=== PATIENT | female | born 1970 | race Caucasian/White ===

== ENCOUNTER 2020-09-07 08:14 | Inpatient (IN) | payer BC ==
[2020-09-07 08:53] LABS: #Eosinphils 0.1 thou/uL (0.0-0.7); #Lymphocytes 1.2 thou/uL (1.20-3.40); #Monocytes 0.3 thou/uL (0.11-0.59); #Neutrophils 9.1 thou/uL (1.40-6.50); %Basophils 0.3 % (0.0-1.0); %Eosinophils 1.2 % (0.0-10.0); %Monocytes 2.5 % (0.0-10.0); Hemoglobin 8.7 g/dL (12.0-16.0); Mean Corpuscular Volume 82.3 fL (78.0-98.0); Mean Platelet Volume 7.1 fL (7.4-10.4); Platelet Count 245 thou/uL (130-400); RBC Distribution Width 14.9 % (11.5-14.5); Red Blood Cell (RBC) Count 3.09 mill/uL (4.20-5.40); White Blood Cell (WBC) Count 10.7 thou/uL (4.8-10.8)
[2020-09-07 09:16] LABS: ALT (SGPT) 33 U/L (8-55); AST (SGOT) 17 U/L (5-34); Albumin 3.9 g/dL (3.5-5.0); Alkaline Phosphatase 99 U/L (40-110); Anion Gap 20 mmol/L (10-20); BUN (Urea Nitrogen) 125 mg/dL (9.8-20.1); Bilirubin, Total 0.4 mg/dL (0.2-1.2); Calc. Creatinine Clearance 0 mL/min (70-130); Calcium 7.2 mg/dL (7.8-10.44); Carbon Dioxide 11 mmol/L (22-29); Chloride 113 mmol/L (98-107); Globulin 4.1 g/dL (2.4-3.5); Glucose 66 mg/dL (70-105); Potassium 5.1 mmol/L (3.5-5.1); Sodium 139 mmol/L (136-145)
[2020-09-07] MEDS ORDERED: Dextrose 50% Abboject 50 ML SYRINGE ONE ×2 (09:45→14:49)
[2020-09-07] MEDS ORDERED: Octreotide Acetate 100 MCG/ML VIAL SLOW IVP SCH (10:45)
[2020-09-07] MEDS ORDERED: hydrALAZINE 20 MG/ML VIAL SLOW IVP PRN (10:58)
[2020-09-07] MEDS ORDERED: Sodium Chloride 0.9% 1,000 ML IV SCH (11:00)
[2020-09-07 12:07] LABS: SARS-CoV-2 NAA Rapid Test Not Detected (NotDetected)
[2020-09-07] MEDS ORDERED: Dextrose 5 % And 0.9 % NaCl 1,000 ML IV SCH (14:30)
[2020-09-07] MEDS ORDERED: Dextrose 50% Abboject 50 ML SYRINGE SLOW IVP PRN (15:00)
[2020-09-07] MEDS ORDERED: Heparin 5,000 UNITS/ML VIAL SC SCH (15:00)
[2020-09-07] MEDS: Sodium Bicarbonate 150 MEQ in Dextrose 5% in Water 1,000 ML IV SCH (15:13)
[2020-09-07] MEDS ORDERED: Lidocaine 1% (PF) 30 ML VIAL ONE (15:54)
[2020-09-07] MEDS ORDERED: Lidocaine 1% w/Epinephrine 1:100K 20 ML VIAL IJ SCH (16:15)
[2020-09-08] MEDS: Sodium Bicarbonate 150 MEQ in Dextrose 5% in Water 1,000 ML IV SCH ×2 (02:12→14:13)
[2020-09-08 03:34] LABS: #Eosinphils 0.3 thou/uL (0.0-0.7); #Lymphocytes 1.4 thou/uL (1.20-3.40); #Monocytes 0.5 thou/uL (0.11-0.59); #Neutrophils 6.3 thou/uL (1.40-6.50); %Basophils 0.3 % (0.0-1.0); %Eosinophils 3.5 % (0.0-10.0); %Lymphocytes 16.6 % (21.0-51.0); %Monocytes 5.5 % (0.0-10.0); %Neutrophils 74.2 % (42.0-75.0); Hemoglobin 7.8 g/dL (12.0-16.0); Mean Corpuscular HGB CONC 33.4 g/dL (32.0-36.0); Mean Corpuscular Hemoglobin 27.4 pg (27.0-31.0); Mean Corpuscular Volume 81.9 fL (78.0-98.0); Platelet Count 244 thou/uL (130-400); RBC Distribution Width 14.9 % (11.5-14.5); Red Blood Cell (RBC) Count 2.85 mill/uL (4.20-5.40); White Blood Cell (WBC) Count 8.6 thou/uL (4.8-10.8)
[2020-09-08 03:57] LABS: Albumin 3.5 g/dL (3.5-5.0); Anion Gap 20 mmol/L (10-20); BUN (Urea Nitrogen) 122 mg/dL (9.8-20.1); BUN/Creatinine Ratio 12.63; Calc. Creatinine Clearance 11 mL/min (70-130); Calcium 6.6 mg/dL (7.8-10.44); Carbon Dioxide 14 mmol/L (22-29); Chloride 109 mmol/L (98-107); Glucose 119 mg/dL (70-105); Iron 74 ug/dL (50-170); Iron Binding Capacity, Total 243 mcg/dL (265-497); Phosphorus 8.9 mg/dL (2.3-4.7); Sodium 138 mmol/L (136-145)
[2020-09-08] MEDS: Enoxaparin Sodium 30 MG/0.3 ML SYRINGE SC SCH (08:55)
[2020-09-08] MEDS: Calcium Acetate 667 MG CAP PO SCH (17:21)
[2020-09-08] MEDS ORDERED: CEFAZOLIN 2 GM in Premix Bag 1 BAG IVPB SCH (18:30)
[2020-09-08] MEDS: EPOETIN ALFA-EPBX (ESRD) 10,000 UNIT/ML VIAL SC SCH (18:47)
[2020-09-08] MEDS: hydrALAZINE 25 MG TAB PO SCH (20:44)
[2020-09-09 04:01] LABS: #Eosinphils 0.2 thou/uL (0.0-0.7); #Lymphocytes 1.7 thou/uL (1.20-3.40); #Monocytes 0.4 thou/uL (0.11-0.59); #Neutrophils 5.9 thou/uL (1.40-6.50); %Basophils 0.2 % (0.0-1.0); %Eosinophils 2.5 % (0.0-10.0); %Lymphocytes 20.3 % (21.0-51.0); %Monocytes 5.3 % (0.0-10.0); %Neutrophils 71.6 % (42.0-75.0); Hemoglobin 7.2 g/dL (12.0-16.0); Mean Corpuscular HGB CONC 33.4 g/dL (32.0-36.0); Mean Corpuscular Volume 80.8 fL (78.0-98.0); Platelet Count 255 thou/uL (130-400); RBC Distribution Width 14.8 % (11.5-14.5); Red Blood Cell (RBC) Count 2.65 mill/uL (4.20-5.40); White Blood Cell (WBC) Count 8.2 thou/uL (4.8-10.8)
[2020-09-09 04:20] LABS: Albumin 3.3 g/dL (3.5-5.0); Anion Gap 18 mmol/L (10-20); BUN (Urea Nitrogen) 125 mg/dL (9.8-20.1); BUN/Creatinine Ratio 13.51; Calc. Creatinine Clearance 12 mL/min (70-130); Calcium 6.5 mg/dL (7.8-10.44); Carbon Dioxide 17 mmol/L (22-29); Chloride 107 mmol/L (98-107); Glucose 115 mg/dL (70-105); Phosphorus 8.6 mg/dL (2.3-4.7); Potassium 4.8 mmol/L (3.5-5.1); Sodium 137 mmol/L (136-145)
[2020-09-09] MEDS: Calcitriol 0.25 MCG CAP PO SCH (09:00)
[2020-09-09] MEDS: Loratadine 10 MG TAB PO SCH (09:00)
[2020-09-09] MEDS: Calcium Acetate 667 MG CAP PO SCH ×3 (09:00→15:08)
[2020-09-09] MEDS: hydrALAZINE 25 MG TAB PO SCH ×2 (09:00→21:07)
[2020-09-09] MEDS: Enoxaparin Sodium 30 MG/0.3 ML SYRINGE SC SCH (09:01)
[2020-09-09] MEDS ORDERED: Heparin 10,000 UNITS/ 10 ML VIAL ONE ×2 (09:08→11:55)
[2020-09-09] MEDS ORDERED: PROPOFOL 20 ML ONE (11:05)
[2020-09-09] MEDS ORDERED: Fentanyl 100 MCG/2 ML VIAL ONE (11:05)
[2020-09-09] MEDS ORDERED: Lidocaine 1% w/Epinephrine 1:100K 20 ML VIAL ONE (11:11)
[2020-09-09] MEDS ORDERED: Bupivacaine PF 0.5% 30 ML VIAL ONE (11:11)
[2020-09-09] MEDS ORDERED: Sodium Chloride 0.9% 10 ML ONE (11:11)
[2020-09-09] MEDS ORDERED: Ondansetron PF 4 MG/2 ML Vial ONE (11:43)
[2020-09-09] MEDS ORDERED: Lidocaine 1% PF 5 ML VIAL ONE (11:43)
[2020-09-09] MEDS ORDERED: PROPOFOL 200 MG/20 ML VIAL ONE (11:43)
[2020-09-09] MEDS ORDERED: Sodium Chloride 0.9% 20 ML ONE (12:00)
[2020-09-09] MEDS ORDERED: Promethazine HCl 25 MG/ML VIAL SLOW IVP PRN (12:16)
[2020-09-09] MEDS ORDERED: Promethazine HCl 25 MG/ML VIAL IM PRN (12:16)
[2020-09-09] MEDS ORDERED: Ondansetron HCl/PF 4 MG/2 ML Vial IVP PRN (12:16)
[2020-09-09] MEDS ORDERED: traMADol HCl 50 MG TAB PO PRN (12:19)
[2020-09-09 23:10] LABS: HBSAg Index 0.14 S/CO (0-0.99); Hep B Surf Ag Non-Reactive S/CO (NonReactive)
[2020-09-10 04:06] LABS: Hemoglobin 7.5 g/dL (12.0-16.0); Platelet Count 239 thou/uL (130-400)
[2020-09-10 04:24] LABS: Albumin 3.5 g/dL (3.5-5.0); Anion Gap 17 mmol/L (10-20); BUN (Urea Nitrogen) 84 mg/dL (9.8-20.1); BUN/Creatinine Ratio 11.59; Calc. Creatinine Clearance 15 mL/min (70-130); Calcium 7.2 mg/dL (7.8-10.44); Carbon Dioxide 23 mmol/L (22-29); Chloride 106 mmol/L (98-107); Glucose 116 mg/dL (70-105); Phosphorus 6.9 mg/dL (2.3-4.7); Potassium 4.5 mmol/L (3.5-5.1); Sodium 141 mmol/L (136-145)
[2020-09-10] MEDS ORDERED: Heparin 10,000 UNITS/ 10 ML VIAL ONE (09:09)
[2020-09-10] MEDS: Ondansetron PF 4 MG/2 ML Vial IVP PRN (10:25)
[2020-09-10] MEDS: hydrALAZINE 25 MG TAB PO SCH ×3 (11:05→21:11)
[2020-09-10] MEDS: Loratadine 10 MG TAB PO SCH (11:05)
[2020-09-10] MEDS: Enoxaparin Sodium 30 MG/0.3 ML SYRINGE SC SCH (11:05)
[2020-09-10] MEDS: Calcitriol 0.25 MCG CAP PO SCH (11:05)
[2020-09-10] MEDS: Calcium Acetate 667 MG CAP PO SCH ×3 (11:05→17:58)
[2020-09-11 04:04] LABS: Reticulocyte Count 4.5 % (0.5-1.5)
[2020-09-11 04:23] LABS: Albumin 3.5 g/dL (3.5-5.0); Anion Gap 15 mmol/L (10-20); BUN (Urea Nitrogen) 60 mg/dL (9.8-20.1); BUN/Creatinine Ratio 10.85; Calc. Creatinine Clearance 19 mL/min (70-130); Calcium 8.1 mg/dL (7.8-10.44); Carbon Dioxide 27 mmol/L (22-29); Chloride 97 mmol/L (98-107); Glucose 125 mg/dL (70-105); Potassium 4.1 mmol/L (3.5-5.1); Sodium 135 mmol/L (136-145)
[2020-09-11] MEDS ORDERED: Heparin 10,000 UNITS/ 10 ML VIAL ONE (08:24)
[2020-09-11] MEDS: Calcium Acetate 667 MG CAP PO SCH ×3 (09:23→17:31)
[2020-09-11] MEDS: hydrALAZINE 25 MG TAB PO SCH ×3 (09:24→21:01)
[2020-09-11] MEDS: Enoxaparin Sodium 30 MG/0.3 ML SYRINGE SC SCH (09:24)
[2020-09-11] MEDS: Loratadine 10 MG TAB PO SCH (09:24)
[2020-09-11] MEDS: Calcitriol 0.25 MCG CAP PO SCH (09:24)
[2020-09-11] MEDS: Ondansetron PF 4 MG/2 ML Vial IVP PRN (11:17)
[2020-09-11] MEDS ORDERED: CEFAZOLIN 2 GM in Premix Bag 1 BAG IVPB SCH (14:45)
[2020-09-12] MEDS: Ondansetron PF 4 MG/2 ML Vial IVP PRN (05:29)
[2020-09-12 07:11] LABS: Albumin 3.7 g/dL (3.5-5.0); Anion Gap 18 mmol/L (10-20); BUN (Urea Nitrogen) 48 mg/dL (9.8-20.1); BUN/Creatinine Ratio 10.19; Calc. Creatinine Clearance 22 mL/min (70-130); Calcium 8.4 mg/dL (7.8-10.44); Carbon Dioxide 28 mmol/L (22-29); Chloride 91 mmol/L (98-107); Glucose 164 mg/dL (70-105); Phosphorus 6.1 mg/dL (2.3-4.7); Potassium 4.1 mmol/L (3.5-5.1); Sodium 133 mmol/L (136-145)
[2020-09-12] MEDS ORDERED: Heparin 10,000 UNITS/ 10 ML VIAL ONE (08:53)
[2020-09-12] MEDS: Enoxaparin Sodium 30 MG/0.3 ML SYRINGE SC SCH (08:57)
[2020-09-12 09:40] LABS: HBSAB Concentration Less than 8.00 mIU/mL; HBSAg Index 0.59 S/CO (0-0.99); Hep B Core Total Ab Non-Reactive (NonReactive); Hep B Core Total Index 0.17 S/CO (0-0.79); Hep B Surf AB Non-Reactive (NonReactive); Hep B Surf Ag Non-Reactive S/CO (NonReactive); Hep C IgG Ab Non-Reactive (NonReactive); Hep C Index 0.08 S/CO (0-0.79)
[2020-09-12] MEDS: hydrALAZINE 25 MG TAB PO SCH ×3 (10:00→21:10)
[2020-09-12] MEDS: Loratadine 10 MG TAB PO SCH (10:00)
[2020-09-12] MEDS: Calcitriol 0.25 MCG CAP PO SCH (10:00)
[2020-09-12] MEDS: Calcium Acetate 667 MG CAP PO SCH ×3 (10:00→17:09)
[2020-09-12 12:00] LABS: Hemoglobin 8.3 g/dL (12.0-16.0); Mean Corpuscular HGB CONC 32.7 g/dL (32.0-36.0); Mean Corpuscular Hemoglobin 27.3 pg (27.0-31.0); Mean Corpuscular Volume 83.6 fL (78.0-98.0); Mean Platelet Volume 6.6 fL (7.4-10.4); Platelet Count 293 thou/uL (130-400); RBC Distribution Width 14.5 % (11.5-14.5); Red Blood Cell (RBC) Count 3.04 mill/uL (4.20-5.40); White Blood Cell (WBC) Count 11.1 thou/uL (4.8-10.8)
[2020-09-12 13:21] LABS: Anion Gap 16 mmol/L (10-20); BUN (Urea Nitrogen) 10 mg/dL (9.8-20.1); Calc. Creatinine Clearance 75 mL/min (70-130); Calcium 8.6 mg/dL (7.8-10.44); Carbon Dioxide 28 mmol/L (22-29); Chloride 97 mmol/L (98-107); Glucose 108 mg/dL (70-105); Potassium 3.7 mmol/L (3.5-5.1); Sodium 137 mmol/L (136-145)
[2020-09-12] MEDS ORDERED: Propofol 500 MG/50 ML VIAL ONE (14:26)
[2020-09-12] MEDS ORDERED: Fentanyl 100 MCG/2 ML VIAL ONE (14:26)
[2020-09-12] MEDS ORDERED: Midazolam HCl 2 mg/2 ml Vial ONE (14:26)
[2020-09-12] MEDS ORDERED: Protamine Sulfate 50 MG/5 ML VIAL ONE (14:33)
[2020-09-12] MEDS ORDERED: Heparin 5,000 UNITS/ML VIAL ONE (14:33)
[2020-09-12] MEDS ORDERED: Bupivacaine PF 0.5% 30 ML VIAL ONE (14:33)
[2020-09-12] MEDS ORDERED: Ioversol 68 % 50 ML VIAL ONE (14:33)
[2020-09-12] MEDS ORDERED: Lidocaine 1% w/Epinephrine 1:100K 20 ML VIAL ONE (14:33)
[2020-09-12] MEDS ORDERED: Lidocaine 1% PF 5 ML VIAL ONE (14:57)
[2020-09-12] MEDS ORDERED: Bupivacaine HCl 0.5%/Epinephrine 1:200,000/PF 30 ml Vial ONE (14:57)
[2020-09-12] MEDS ORDERED: PROPOFOL 200 MG/20 ML VIAL ONE (14:57)
[2020-09-12] MEDS ORDERED: CEFAZOLIN 2 GM in Premix Bag 1 BAG IVPB SCH (16:15)
[2020-09-13] MEDS: Acetaminophen 500 MG TAB PO PRN (05:41)
[2020-09-13] MEDS: Calcium Acetate 667 MG CAP PO SCH ×3 (07:50→17:37)
[2020-09-13] MEDS: Calcitriol 0.25 MCG CAP PO SCH (07:50)
[2020-09-13] MEDS: Enoxaparin Sodium 30 MG/0.3 ML SYRINGE SC SCH ×2 (07:50→10:48)
[2020-09-13] MEDS: hydrALAZINE 25 MG TAB PO SCH ×3 (07:51→20:38)
[2020-09-13] MEDS: Loratadine 10 MG TAB PO SCH (07:51)
[2020-09-13] MEDS ORDERED: Tuberculin PPD 0.1 ML VIAL I-DERMAL SCH (12:00)
[2020-09-14 06:10] LABS: Anion Gap 17 mmol/L (10-20); BUN (Urea Nitrogen) 45 mg/dL (9.8-20.1); Calc. Creatinine Clearance 18 mL/min (70-130); Calcium 8.8 mg/dL (7.8-10.44); Carbon Dioxide 26 mmol/L (22-29); Chloride 94 mmol/L (98-107); Glucose 169 mg/dL (70-105); Potassium 4.1 mmol/L (3.5-5.1); Sodium 133 mmol/L (136-145)
[2020-09-14] MEDS: Calcium Acetate 667 MG CAP PO SCH ×3 (07:12→18:11)
[2020-09-14] MEDS: Loratadine 10 MG TAB PO SCH (07:12)
[2020-09-14] MEDS: Enoxaparin Sodium 30 MG/0.3 ML SYRINGE SC SCH (07:12)
[2020-09-14] MEDS: Calcitriol 0.25 MCG CAP PO SCH (07:12)
[2020-09-14] MEDS: hydrALAZINE 25 MG TAB PO SCH ×3 (08:09→22:28)
[2020-09-14] MEDS ORDERED: Amlodipine 5 MG TAB PO SCH (10:00)
[2020-09-14] MEDS ORDERED: Bupivacaine PF 0.5% 30 ML VIAL ONE ×2 (11:03→14:52)
[2020-09-14] MEDS ORDERED: Heparin 5,000 UNITS/ML VIAL ONE (11:03)
[2020-09-14] MEDS ORDERED: Protamine Sulfate 50 MG/5 ML VIAL ONE (11:03)
[2020-09-14] MEDS ORDERED: XYLOCAINE 2%-EPI 1:100,000 20 ML VIAL ONE (11:03)
[2020-09-14] MEDS ORDERED: Ioversol 68 % 50 ML VIAL ONE (11:03)
[2020-09-14] MEDS ORDERED: Bupivacaine 0.25% HCL 30 ML VIAL ONE ×2 (11:58→14:52)
[2020-09-14] MEDS ORDERED: Lidocaine 1% w/Epinephrine 1:100K 20 ML VIAL ONE ×2 (11:58→14:52)
[2020-09-14] MEDS ORDERED: Fentanyl 100 MCG/2 ML VIAL ONE ×3 (12:28→15:04)
[2020-09-14] MEDS ORDERED: Propofol 500 MG/50 ML VIAL ONE (13:44)
[2020-09-14] MEDS ORDERED: Ondansetron PF 4 MG/2 ML Vial ONE (14:56)
[2020-09-14] MEDS ORDERED: Bupivacaine HCl 0.5%/Epinephrine 1:200,000/PF 30 ml Vial ONE (14:56)
[2020-09-14] MEDS ORDERED: Promethazine HCl 25 MG/ML VIAL ONE (16:51)
[2020-09-14 17:19] LABS: Hemoglobin 7.8 g/dL (12.0-16.0); Mean Corpuscular HGB CONC 33.3 g/dL (32.0-36.0); Mean Corpuscular Hemoglobin 27.9 pg (27.0-31.0); Mean Corpuscular Volume 83.8 fL (78.0-98.0); Mean Platelet Volume 7.1 fL (7.4-10.4); Platelet Count 471 thou/uL (130-400); RBC Distribution Width 14.8 % (11.5-14.5); Red Blood Cell (RBC) Count 2.81 mill/uL (4.20-5.40)
[2020-09-14] MEDS ORDERED: PHENYLEPHRINE-NS 100 MCG/ML 10 ML SYRINGE ONE (17:28)
[2020-09-14 17:37] LABS: Anisocytosis SLIGHT = 6-15 cells (100X) (0-5/hpf); Band 9 % (5-11); Eosinophils 5 % (0-10); Lymphocytes 24 % (21-51); MDiff Complete? YES; Monocytes 3 % (0-10); Neutrophil 57 % (42-75); Platelet Morphology Comment Appears Increased; Reactive Lymphocytes 2 % (0-10); White Blood Cell (WBC) Count 24.1 thou/uL (4.8-10.8)
[2020-09-14] MEDS ORDERED: Norepinephrine 8 MG/0.9% NS 250 ML IVPB SCH (18:48)
[2020-09-14 18:49] LABS: Anion Gap 20 mmol/L (10-20); BUN (Urea Nitrogen) 46 mg/dL (9.8-20.1); Calc. Creatinine Clearance 16 mL/min (70-130); Calcium 8.1 mg/dL (7.8-10.44); Carbon Dioxide 20 mmol/L (22-29); Chloride 95 mmol/L (98-107); Glucose 266 mg/dL (70-105); Potassium 4.2 mmol/L (3.5-5.1); Sodium 131 mmol/L (136-145)
[2020-09-15 00:21] LABS: Platelet Count 294 thou/uL (130-400)
[2020-09-15 04:07] LABS: #Basophils 0.1 thou/uL (0.0-0.2); #Eosinphils 0.1 thou/uL (0.0-0.7); #Lymphocytes 1.6 thou/uL (1.20-3.40); #Monocytes 0.7 thou/uL (0.11-0.59); #Neutrophils 16.4 thou/uL (1.40-6.50); %Basophils 0.5 % (0.0-1.0); %Eosinophils 0.5 % (0.0-10.0); %Lymphocytes 8.4 % (21.0-51.0); %Monocytes 3.8 % (0.0-10.0); %Neutrophils 86.8 % (42.0-75.0); Hemoglobin 8.8 g/dL (12.0-16.0); Mean Corpuscular HGB CONC 33.3 g/dL (32.0-36.0); Mean Corpuscular Hemoglobin 27.9 pg (27.0-31.0); Mean Corpuscular Volume 83.8 fL (78.0-98.0); Mean Platelet Volume 7.1 fL (7.4-10.4); Platelet Count 280 thou/uL (130-400); RBC Distribution Width 14.6 % (11.5-14.5); Red Blood Cell (RBC) Count 3.14 mill/uL (4.20-5.40); White Blood Cell (WBC) Count 18.9 thou/uL (4.8-10.8)
[2020-09-15 04:31] LABS: Anion Gap 20 mmol/L (10-20); BUN (Urea Nitrogen) 52 mg/dL (9.8-20.1); Calc. Creatinine Clearance 15 mL/min (70-130); Calcium 8.4 mg/dL (7.8-10.44); Carbon Dioxide 21 mmol/L (22-29); Chloride 95 mmol/L (98-107); Glucose 166 mg/dL (70-105); Potassium 4.9 mmol/L (3.5-5.1); Sodium 131 mmol/L (136-145)
[2020-09-15] MEDS: Acetaminophen 500 MG TAB PO PRN ×2 (06:16→20:18)
[2020-09-15 06:50] VITALS: BMI 41.1
[2020-09-15 08:09] LABS: Hemoglobin 8.6 g/dL (12.0-16.0); Platelet Count 274 thou/uL (130-400)
[2020-09-15] MEDS: Loratadine 10 MG TAB PO SCH (08:21)
[2020-09-15] MEDS: Calcium Acetate 667 MG CAP PO SCH ×3 (08:21→17:15)
[2020-09-15] MEDS ORDERED: Heparin 10,000 UNITS/ 10 ML VIAL ONE (08:43)
[2020-09-15] MEDS ORDERED: Amlodipine 5 MG TAB PO SCH (09:00)
[2020-09-15] MEDS: Calcitriol 0.25 MCG CAP PO SCH (09:08)
[2020-09-15] MEDS: hydrALAZINE 25 MG TAB PO SCH ×3 (09:56→20:16)
[2020-09-15] MEDS ORDERED: READ PPD TEST SITE PO SCH (14:00)
[2020-09-15] MEDS: EPOETIN ALFA-EPBX (ESRD) 10,000 UNIT/ML VIAL SC SCH (20:19)
[2020-09-16 06:14] LABS: #Basophils 0.1 thou/uL (0.0-0.2); #Eosinphils 0.2 thou/uL (0.0-0.7); #Lymphocytes 1.5 thou/uL (1.20-3.40); #Monocytes 0.8 thou/uL (0.11-0.59); #Neutrophils 11.5 thou/uL (1.40-6.50); %Basophils 0.6 % (0.0-1.0); %Eosinophils 1.5 % (0.0-10.0); %Lymphocytes 10.9 % (21.0-51.0); %Monocytes 5.5 % (0.0-10.0); %Neutrophils 81.5 % (42.0-75.0); Hemoglobin 9.3 g/dL (12.0-16.0); Mean Corpuscular Hemoglobin 28.3 pg (27.0-31.0); Mean Corpuscular Volume 85.5 fL (78.0-98.0); Mean Platelet Volume 7.5 fL (7.4-10.4); Platelet Count 254 thou/uL (130-400); RBC Distribution Width 14.7 % (11.5-14.5); Red Blood Cell (RBC) Count 3.29 mill/uL (4.20-5.40); White Blood Cell (WBC) Count 14.1 thou/uL (4.8-10.8)
[2020-09-16 06:38] LABS: Anion Gap 16 mmol/L (10-20); BUN (Urea Nitrogen) 27 mg/dL (9.8-20.1); Calc. Creatinine Clearance 21 mL/min (70-130); Carbon Dioxide 27 mmol/L (22-29); Chloride 98 mmol/L (98-107); Potassium 4.5 mmol/L (3.5-5.1); Sodium 136 mmol/L (136-145)
[2020-09-16 06:39] LABS: Calcium 8.9 mg/dL (7.8-10.44); Glucose 184 mg/dL (70-105)
[2020-09-16] MEDS ORDERED: Carvedilol 3.125 MG TAB PO SCH (08:00)
[2020-09-16 08:13] VITALS: BP 129/85; TEMP 99.4
[2020-09-16] MEDS: Calcitriol 0.25 MCG CAP PO SCH (08:35)
[2020-09-16] MEDS: Loratadine 10 MG TAB PO SCH (08:35)
[2020-09-16] MEDS: Calcium Acetate 667 MG CAP PO SCH (08:35)
[2020-09-16] MEDS ORDERED: Amlodipine 10 MG TAB PO SCH (09:00)
[2020-09-17] MEDS ORDERED: Torsemide 20 MG TAB PO SCH (09:00)
== END 2020-09-16 11:51 | disposition home or self-care (01) | DRG 674 ==
LOC: ERS 08:14 → IMCU/EMU 10:20 → T4-B 09-11 16:22 → CCU 09-14 18:52 → T4-B 09-15 11:28
PROVIDERS: ADMIT Internal Medicine; ATTEND Internal Medicine
PROC: 0JH63XZ Insertion of Tunneled Vascular Access Device into Chest Subcutaneous Tissue and Fascia, Percutaneous Approach (ICD-10-PCS; principal; 2020-09-09)
PROC: 5A1D70Z Performance of Urinary Filtration, Intermittent, Less than 6 Hours Per Day (ICD-10-PCS; 2020-09-09)
PROC: 0HB5XZX Excision of Chest Skin, External Approach, Diagnostic (ICD-10-PCS; 2020-09-10)
PROC: 05JY0ZZ Inspection of Upper Vein, Open Approach (ICD-10-PCS; 2020-09-12)
PROC: 03JY0ZZ Inspection of Upper Artery, Open Approach (ICD-10-PCS; 2020-09-12)
PROC: 02HV33Z Insertion of Infusion Device into Superior Vena Cava, Percutaneous Approach (ICD-10-PCS; 2020-09-12)
PROC: B548ZZA Ultrasonography of Superior Vena Cava, Guidance (ICD-10-PCS; 2020-09-12)
PROC: 02HV33Z Insertion of Infusion Device into Superior Vena Cava, Percutaneous Approach (ICD-10-PCS; 2020-09-12)
PROC: B518ZZA Fluoroscopy of Superior Vena Cava, Guidance (ICD-10-PCS; 2020-09-12)
PROC: 03170JD Bypass Right Brachial Artery to Upper Arm Vein with Synthetic Substitute, Open Approach (ICD-10-PCS; 2020-09-14)
PROC: 30233N1 Transfusion of Nonautologous Red Blood Cells into Peripheral Vein, Percutaneous Approach (ICD-10-PCS; 2020-09-15)
DX: N17.9 Acute kidney failure, unspecified (principal); E87.2 Acidosis; I12.0 Hypertensive chronic kidney disease with stage 5 chronic kidney disease or end stage renal disease; E87.1 Hypo-osmolality and hyponatremia; E11.649 Type 2 diabetes mellitus with hypoglycemia without coma; E78.00 Pure hypercholesterolemia, unspecified; E11.22 Type 2 diabetes mellitus with diabetic chronic kidney disease; D63.1 Anemia in chronic kidney disease; E66.01 Morbid (severe) obesity due to excess calories; K21.9 Gastro-esophageal reflux disease without esophagitis; E88.81 Metabolic syndrome and other insulin resistance; N18.6 End stage renal disease; C50.412 Malignant neoplasm of upper-outer quadrant of left female breast; E83.39 Other disorders of phosphorus metabolism; N25.81 Secondary hyperparathyroidism of renal origin; E83.51 Hypocalcemia; I95.9 Hypotension, unspecified; Z20.822 Contact with and (suspected) exposure to COVID-19; Z90.710 Acquired absence of both cervix and uterus; Z88.8 Allergy status to other drugs, medicaments and biological substances; Z79.84 Long term (current) use of oral hypoglycemic drugs; Z79.899 Other long term (current) drug therapy; Z90.49 Acquired absence of other specified parts of digestive tract; Z87.442 Personal history of urinary calculi; Z98.890 Other specified postprocedural states; Z80.1 Family history of malignant neoplasm of trachea, bronchus and lung; Z87.891 Personal history of nicotine dependence; Z99.2 Dependence on renal dialysis; Z17.0 Estrogen receptor positive status [ER+]; Z68.38 Body mass index [BMI] 38.0-38.9, adult
CPT/HCPCS: 0240U; 36415; 36416; 36430; 71045; 76770; 76999; 80048; 80053; 80069; 82607; 82728; 82746; 83540; 83550; 83735; 83970; 85014; 85018; 85025; 85027; 85046; 85049; 86300; 86580; 86704; 86706; 86803; 86850; 86900; 86901; 87340; 88305; 88341; 88342; 90935; 93005; 93970; 96374; C1751; C1752; G0257; J0690; J1642; J1644; J1650; J2001; J2250; J2354; J2405; J2550; J2704; J2720; J3010; J7070; L8670; P9016; Q5105; Q9967; S0020

== ENCOUNTER 2020-09-28 12:46 | Outpatient (CLI) | payer BC ==
[~2020-09-28 12:46] MED LIST: Magnevist 469MG/ML 20 ML VIAL ONE
== END 2020-09-28 12:47 | disposition home or self-care (01) ==
LOC: ULT 12:46
PROVIDERS: ATTEND Internal Medicine Hematology & Oncology
DX: Z51.11 Encounter for antineoplastic chemotherapy (principal); C50.112 Malignant neoplasm of central portion of left female breast; N18.5 Chronic kidney disease, stage 5; Z79.899 Other long term (current) drug therapy; Z99.2 Dependence on renal dialysis; I08.1 Rheumatic disorders of both mitral and tricuspid valves
CPT/HCPCS: 70553; 93306

== ENCOUNTER 2020-10-01 09:19 | Outpatient (CLI) | payer BC ==
[~2020-10-01 09:19] MED LIST changes: +Iopamidol 370 76% 100 ML VIAL ONE; -Magnevist 469MG/ML 20 ML VIAL ONE
== END 2020-10-01 09:20 | disposition home or self-care (01) ==
LOC: CT 09:19
PROVIDERS: ATTEND Internal Medicine Hematology & Oncology
DX: C50.112 Malignant neoplasm of central portion of left female breast (principal); N18.5 Chronic kidney disease, stage 5; C79.51 Secondary malignant neoplasm of bone
CPT/HCPCS: 71260; 74177; 78306; A9503; Q9967

== ENCOUNTER 2021-01-11 08:12 | Outpatient (CLI) | payer BC ==
[2021-01-11] MEDS ORDERED: Iopamidol 370 76% 100 ML VIAL ONE (10:09)
== END 2021-01-11 08:13 | disposition home or self-care (01) ==
LOC: CT 08:12
PROVIDERS: ATTEND Internal Medicine Hematology & Oncology
DX: C50.112 Malignant neoplasm of central portion of left female breast (principal); C79.51 Secondary malignant neoplasm of bone; M79.89 Other specified soft tissue disorders; E27.8 Other specified disorders of adrenal gland; N28.89 Other specified disorders of kidney and ureter; E04.2 Nontoxic multinodular goiter
CPT/HCPCS: 71260; 74177; 78306; A9561; Q9967

== ENCOUNTER 2021-01-25 10:32 | Outpatient (CLI) | payer BC ==
[2021-01-26 01:38] LABS: SARS-CoV-2 PCR by NAA Not Detected (NotDetected)
== END 2021-01-25 10:33 | disposition home or self-care (01) ==
LOC: LABBT 10:32
PROVIDERS: ATTEND Internal Medicine Hematology & Oncology
DX: Z01.812 Encounter for preprocedural laboratory examination (principal); Z20.822 Contact with and (suspected) exposure to COVID-19
CPT/HCPCS: U0003; U0005

== ENCOUNTER 2021-01-30 09:06 | Day surgery (SDC) | payer BC ==
[2021-01-28 15:22] VITALS: BMI 35.9
[2021-01-30 09:18] LABS: #Basophils 0.1 thou/uL (0.0-0.2); #Eosinphils 0.2 thou/uL (0.0-0.7); #Lymphocytes 1.6 thou/uL (1.20-3.40); #Monocytes 0.2 thou/uL (0.11-0.59); #Neutrophils 2.9 thou/uL (1.40-6.50); %Basophils 2.1 % (0.0-1.0); %Eosinophils 3.6 % (0.0-10.0); %Lymphocytes 32.6 % (21.0-51.0); %Monocytes 4.4 % (0.0-10.0); %Neutrophils 57.3 % (42.0-75.0); Hemoglobin 10.4 g/dL (12.0-16.0); Mean Corpuscular HGB CONC 34.6 g/dL (32.0-36.0); Mean Corpuscular Volume 92.5 fL (78.0-98.0); Mean Platelet Volume 6.9 fL (7.4-10.4); Platelet Count 193 thou/uL (130-400); RBC Distribution Width 17.4 % (11.5-14.5); Red Blood Cell (RBC) Count 3.25 mill/uL (4.20-5.40)
[2021-01-30 09:28] LABS: PTT 30.6 sec (22.9-36.1)
[2021-01-30 11:38] VITALS: BP 126/72; TEMP 98.2
== END 2021-01-30 12:21 | disposition home or self-care (01) ==
LOC: CT 09:06
PROVIDERS: ATTEND Internal Medicine Hematology & Oncology
PROC: 0QB23ZX Excision of Right Pelvic Bone, Percutaneous Approach, Diagnostic (ICD-10-PCS; principal; 2021-01-30)
DX: C50.112 Malignant neoplasm of central portion of left female breast (principal); C79.51 Secondary malignant neoplasm of bone; N18.9 Chronic kidney disease, unspecified; Z79.899 Other long term (current) drug therapy; Z88.8 Allergy status to other drugs, medicaments and biological substances
CPT/HCPCS: 20225; 77002; 85025; 85610; 85730; 88307; 88342

== ENCOUNTER 2021-04-04 07:57 | Outpatient (CLI) | payer BC | END 2021-04-04 07:58 | disposition home or self-care (01) | LOC: CT 07:57 | PROVIDERS: ATTEND Internal Medicine Hematology & Oncology | DX: C50.112 Malignant neoplasm of central portion of left female breast (principal); C79.51 Secondary malignant neoplasm of bone; M89.9 Disorder of bone, unspecified | CPT/HCPCS: 71260; 74177; 78306; A9503 ==

== ENCOUNTER 2021-09-24 09:09 | Outpatient (CLI) | payer BC ==
[2021-09-24] MEDS ORDERED: Iopamidol 370 76% 100 ML VIAL ONE (09:24)
== END 2021-09-24 09:10 | disposition home or self-care (01) ==
LOC: CT 09:09
PROVIDERS: ATTEND Internal Medicine Hematology & Oncology
DX: C50.112 Malignant neoplasm of central portion of left female breast (principal); C79.51 Secondary malignant neoplasm of bone; E27.8 Other specified disorders of adrenal gland; R92.2 Inconclusive mammogram; E04.2 Nontoxic multinodular goiter
CPT/HCPCS: 71260; 74177; 78306; A9503

== ENCOUNTER 2022-01-30 08:54 | Outpatient (CLI) | payer BC, MEDICARE ==
[2022-01-30] MEDS ORDERED: Iopamidol 370 76% 100 ML VIAL ONE (10:13)
== END 2022-01-30 08:55 | disposition home or self-care (01) ==
LOC: CT 08:54
PROVIDERS: ATTEND Internal Medicine Hematology & Oncology
DX: C50.112 Malignant neoplasm of central portion of left female breast (principal); C79.51 Secondary malignant neoplasm of bone; N18.5 Chronic kidney disease, stage 5; N63.20 Unspecified lump in the left breast, unspecified quadrant; R59.0 Localized enlarged lymph nodes; K31.89 Other diseases of stomach and duodenum
CPT/HCPCS: 71260; 74177; 78306; A9503

== ENCOUNTER 2022-05-27 09:32 | Outpatient (CLI) | payer BC, MEDICARE ==
[2022-05-27] MEDS ORDERED: Iopamidol 370 76% 100 ML VIAL ONE (09:41)
== END 2022-05-27 09:33 | disposition home or self-care (01) ==
LOC: CT 09:32
PROVIDERS: ATTEND Internal Medicine Hematology & Oncology
DX: C50.112 Malignant neoplasm of central portion of left female breast (principal); N18.5 Chronic kidney disease, stage 5; C79.51 Secondary malignant neoplasm of bone
CPT/HCPCS: 71260; 74177; 78306; A9503; Q9967

== ENCOUNTER 2022-08-19 08:56 | Outpatient (CLI) | payer BC, MEDICARE ==
[2022-08-19] MEDS ORDERED: Iopamidol 370 76% 100 ML VIAL ONE (10:06)
== END 2022-08-19 08:57 | disposition home or self-care (01) ==
LOC: NM 08:56
PROVIDERS: ATTEND Internal Medicine Hematology & Oncology
DX: C50.112 Malignant neoplasm of central portion of left female breast (principal); N18.5 Chronic kidney disease, stage 5; C79.51 Secondary malignant neoplasm of bone; R59.0 Localized enlarged lymph nodes; E27.8 Other specified disorders of adrenal gland; N28.89 Other specified disorders of kidney and ureter
CPT/HCPCS: 71260; 74177; 78306; A9503

== ENCOUNTER 2022-10-23 08:36 | Outpatient (CLI) | payer BC, MEDICARE | END 2022-10-23 08:37 | disposition home or self-care (01) | LOC: CT 08:36 | PROVIDERS: ATTEND Internal Medicine Hematology & Oncology | DX: C50.112 Malignant neoplasm of central portion of left female breast (principal); C79.51 Secondary malignant neoplasm of bone; N18.5 Chronic kidney disease, stage 5 | CPT/HCPCS: 71260; 74177; 78306; A9503 ==

== ENCOUNTER 2022-11-10 09:41 | Emergency (ER) | payer BC, MEDICARE | END 2022-11-10 11:21 | disposition home or self-care (01) | LOC: ERS 09:41 | DX: L76.22 Postprocedural hemorrhage of skin and subcutaneous tissue following other procedure (principal); I12.0 Hypertensive chronic kidney disease with stage 5 chronic kidney disease or end stage renal disease; N18.6 End stage renal disease; E11.22 Type 2 diabetes mellitus with diabetic chronic kidney disease | CPT/HCPCS: 99283 ==

== ENCOUNTER 2022-11-18 08:04 | Emergency (ER) | payer BC, MEDICARE ==
[2022-11-18 08:49] LABS: #Eosinphils 0.1 thou/uL (0.0-0.7); #Monocytes 0.3 thou/uL (0.11-0.59); #Neutrophils 3.3 thou/uL (1.40-6.50); %Basophils 0.4 % (0.0-1.0); %Eosinophils 1.3 % (0.0-10.0); %Lymphocytes 20.2 % (21.0-51.0); %Monocytes 6.2 % (0.0-10.0); %Neutrophils 70.8 % (42.0-75.0); Hematocrit 22.4 % (36.0-47.0); Hemoglobin 6.6 g/dL (12.0-16.0); Mean Corpuscular HGB CONC 29.5 g/dL (32.0-36.0); Mean Corpuscular Hemoglobin 24.3 pg (27.0-31.0); Mean Corpuscular Volume 82.4 fl (78.0-98.0); Mean Platelet Volume 9.2 fL (7.4-10.4); Platelet Count 147 10x3/uL (130-400); Red Blood Cell (RBC) Count 2.72 mill/uL (4.20-5.40); White Blood Cell (WBC) Count 4.7 10x3/uL (4.8-10.8)
[2022-11-18 09:21] LABS: ALT (SGPT) 30 U/L (8-55); AST (SGOT) 29 U/L (5-34); Albumin 3.9 g/dL (3.5-5.0); Alkaline Phosphatase 100 U/L (40-110); Anion Gap 16 mmol/L (10-20); BUN (Urea Nitrogen) 33 mg/dL (9.8-20.1); Bilirubin, Total 0.3 mg/dL (0.2-1.2); Calc. Creatinine Clearance 0 mL/min (70-130); Calcium 8.7 mg/dL (7.8-10.44); Carbon Dioxide 28 mmol/L (22-29); Chloride 98 mmol/L (98-107); Estimated GFR 14; Globulin 3.4 g/dL (2.4-3.5); Glucose 214 mg/dL (70-105); Potassium 3.8 mmol/L (3.5-5.1); Protein, Total 7.3 g/dL (6.0-8.3); Sodium 138 mmol/L (136-145)
[2022-11-18] MEDS ORDERED: Ibuprofen 200 MG TAB ONE (11:53)
[2022-11-18 13:35] LABS: #Eosinphils 0.1 thou/uL (0.0-0.7); #Monocytes 0.3 thou/uL (0.11-0.59); #Neutrophils 3.3 thou/uL (1.40-6.50); %Basophils 0.4 % (0.0-1.0); %Eosinophils 1.1 % (0.0-10.0); %Lymphocytes 20.2 % (21.0-51.0); %Monocytes 6.4 % (0.0-10.0); %Neutrophils 70.6 % (42.0-75.0); Hematocrit 25.3 % (36.0-47.0); Hemoglobin 7.7 g/dL (12.0-16.0); Mean Corpuscular HGB CONC 30.4 g/dL (32.0-36.0); Mean Corpuscular Hemoglobin 25.7 pg (27.0-31.0); Mean Corpuscular Volume 84.3 fl (78.0-98.0); Platelet Count 138 10x3/uL (130-400); RBC Distribution Width 18.6 % (11.5-14.5); White Blood Cell (WBC) Count 4.7 10x3/uL (4.8-10.8)
[2022-11-18] MEDS ORDERED: Silver Nitrate Application 1 EACH ONE (14:00)
== END 2022-11-18 15:03 | disposition home or self-care (01) ==
LOC: ERS 08:04
DX: D64.9 Anemia, unspecified (principal); N63.0 Unspecified lump in unspecified breast; E11.9 Type 2 diabetes mellitus without complications; E78.00 Pure hypercholesterolemia, unspecified; I10 Essential (primary) hypertension; Z79.899 Other long term (current) drug therapy
CPT/HCPCS: 36415; 36430; 80053; 85025; 85046; 86850; 86900; 86901; 93005; P9016

== ENCOUNTER 2022-12-08 09:12 | Inpatient (IN) | payer BC, MEDICARE ==
[2022-12-08 09:48] LABS: #Eosinphils 0.1 thou/uL (0.0-0.7); #Monocytes 0.3 thou/uL (0.11-0.59); #Neutrophils 3.9 thou/uL (1.40-6.50); %Basophils 0.4 % (0.0-1.0); %Eosinophils 1.3 % (0.0-10.0); %Lymphocytes 19.1 % (21.0-51.0); %Monocytes 5.8 % (0.0-10.0); %Neutrophils 70.5 % (42.0-75.0); Hemoglobin 7.1 g/dL (12.0-16.0); Mean Corpuscular HGB CONC 30.9 g/dL (32.0-36.0); Mean Corpuscular Hemoglobin 24.1 pg (27.0-31.0); Mean Corpuscular Volume 78.2 fl (78.0-98.0); Mean Platelet Volume 8.5 fL (7.4-10.4); Platelet Count 153 10x3/uL (130-400); RBC Distribution Width 18.3 % (11.5-14.5); Red Blood Cell (RBC) Count 2.94 mill/uL (4.20-5.40); White Blood Cell (WBC) Count 5.6 10x3/uL (4.8-10.8)
[2022-12-08 10:13] LABS: ALT (SGPT) 94 U/L (8-55); AST (SGOT) 83 U/L (5-34); Albumin 3.6 g/dL (3.5-5.0); Alkaline Phosphatase 171 U/L (40-110); Anion Gap 16 mmol/L (10-20); BUN (Urea Nitrogen) 62 mg/dL (9.8-20.1); Bilirubin, Total 0.4 mg/dL (0.2-1.2); Calc. Creatinine Clearance 0 mL/min (70-130); Carbon Dioxide 23 mmol/L (22-29); Chloride 95 mmol/L (98-107); Estimated GFR 9; Globulin 3.4 g/dL (2.4-3.5); Glucose 208 mg/dL (70-105); Magnesium 2.5 mg/dL (1.6-2.6); Potassium 4.1 mmol/L (3.5-5.1); Sodium 130 mmol/L (136-145)
[2022-12-08] MEDS ORDERED: Acetaminophen 325 MG TAB ONE (14:04)
[2022-12-08 15:01] LABS: #Eosinphils 0.1 thou/uL (0.0-0.7); #Monocytes 0.5 thou/uL (0.11-0.59); #Neutrophils 3.5 thou/uL (1.40-6.50); %Basophils 0.5 % (0.0-1.0); %Eosinophils 1.2 % (0.0-10.0); %Lymphocytes 23.9 % (21.0-51.0); %Monocytes 8.3 % (0.0-10.0); Hematocrit 25.1 % (36.0-47.0); Hemoglobin 8.1 g/dL (12.0-16.0); Mean Corpuscular HGB CONC 32.3 g/dL (32.0-36.0); Mean Corpuscular Hemoglobin 25.8 pg (27.0-31.0); Mean Corpuscular Volume 79.9 fl (78.0-98.0); Mean Platelet Volume 8.9 fL (7.4-10.4); Platelet Count 137 10x3/uL (130-400); RBC Distribution Width 18.1 % (11.5-14.5); Red Blood Cell (RBC) Count 3.14 mill/uL (4.20-5.40); White Blood Cell (WBC) Count 5.7 10x3/uL (4.8-10.8)
[2022-12-08] MEDS ORDERED: Senokot S 8.6-50 MG TAB PO PRN (17:07)
[2022-12-08] MEDS ORDERED: Bisacodyl 10 MG SUPP PR PRN (17:07)
[2022-12-08] MEDS ORDERED: Dextrose 50% Abboject 50 ML SYRINGE SLOW IVP PRN (17:07)
[2022-12-08] MEDS ORDERED: HumaLOG 300 UNITS/3 ML VIAL SC PRN (17:07)
[2022-12-08] MEDS ORDERED: Glucagon 1 MG/ML KIT IM PRN (17:07)
[2022-12-08] MEDS ORDERED: Dextrose 5% in Water 1,000 ML IV PRN (17:07)
[2022-12-08] MEDS ORDERED: Bisacodyl 5 MG TAB PO PRN (17:07)
[2022-12-08 19:29] LABS: SARS-CoV-2 NAA Rapid Test Not Detected (NotDetected)
[2022-12-08] MEDS ORDERED: Azithromycin 250 MG TAB PO SCH (19:45)
[2022-12-08] MEDS: cefTRIAXone\\ROCEPHIN 2 GM in Sodium Chloride 0.9% 100 ML IVPB SCH (22:25)
[2022-12-09 04:54] LABS: #Eosinphils 0.1 thou/uL (0.0-0.7); #Monocytes 0.4 thou/uL (0.11-0.59); #Neutrophils 3.1 thou/uL (1.40-6.50); %Basophils 0.4 % (0.0-1.0); %Eosinophils 1.1 % (0.0-10.0); %Lymphocytes 21.3 % (21.0-51.0); %Monocytes 7.5 % (0.0-10.0); %Neutrophils 66.9 % (42.0-75.0); Hemoglobin 8.2 g/dL (12.0-16.0); Mean Corpuscular HGB CONC 31.5 g/dL (32.0-36.0); Mean Corpuscular Hemoglobin 25.7 pg (27.0-31.0); Mean Corpuscular Volume 81.5 fl (78.0-98.0); Mean Platelet Volume 8.7 fL (7.4-10.4); Platelet Count 122 10x3/uL (130-400); RBC Distribution Width 17.7 % (11.5-14.5); Red Blood Cell (RBC) Count 3.19 mill/uL (4.20-5.40); White Blood Cell (WBC) Count 4.7 10x3/uL (4.8-10.8)
[2022-12-09 05:01] LABS: Hemoglobin A1c 5.9 % (4.0-6.0)
[2022-12-09 05:16] LABS: ALT (SGPT) 103 U/L (8-55); AST (SGOT) 94 U/L (5-34); Albumin 3.3 g/dL (3.5-5.0); Alkaline Phosphatase 167 U/L (40-110); Anion Gap 17 mmol/L (10-20); BUN (Urea Nitrogen) 69 mg/dL (9.8-20.1); Bilirubin, Direct 0.2 mg/dL (0.1-0.3); Bilirubin, Total 0.3 mg/dL (0.2-1.2); Calc. Creatinine Clearance 13 mL/min (70-130); Calcium 8.6 mg/dL (7.8-10.44); Carbon Dioxide 24 mmol/L (22-29); Cardiac Risk 6.6 (Less than 4.5); Chloride 97 mmol/L (98-107); Cholesterol 218 mg/dl (< 200 Desired); Estimated GFR 9; Globulin 3.3 g/dL (2.4-3.5); Glucose 150 mg/dL (70-105); HDL Cholesterol 33 mg/dL (>60 Neg Risk); Magnesium 2.4 mg/dL (1.6-2.6); Potassium 4.4 mmol/L (3.5-5.1); Protein, Total 6.6 g/dL (6.0-8.3); Sodium 134 mmol/L (136-145); Triglycerides 553 mg/dL (Less than 150)
[2022-12-09 06:32] LABS: Legionella Urinary Ag Negative (Negative); Strep pneumo Urine Ag NEGATIVE (NEGATIVE)
[2022-12-09] MEDS ORDERED: Carvedilol 3.125 MG TAB PO SCH (08:00)
[2022-12-09] MEDS ORDERED: Heparin 10,000 UNITS/ 10 ML VIAL ONE (08:37)
[2022-12-09] MEDS ORDERED: Amlodipine 5 MG TAB PO SCH (09:00)
[2022-12-09] MEDS ORDERED: Benzonatate 100 MG CAP PO PRN (09:41)
[2022-12-09] MEDS: Azithromycin 250 MG TAB PO SCH (09:54)
[2022-12-09 10:07] LABS: HBSAg Index 0.21 S/CO (0-0.99); Hep B Core Total Ab Non-Reactive (NonReactive); Hep B Core Total Index 0.12 S/CO (0-0.79); Hep B Surf Ag Non-Reactive S/CO (NonReactive); Hep C IgG Ab Non-Reactive S/CO (NonReactive); Hep C Index 0.05 S/CO (0-0.79)
[2022-12-09 10:33] LABS: HBSAB Concentration 309.26 mIU/mL; Hep B Surf AB Reactive (NonReactive)
[2022-12-09] MEDS: Acetaminophen 325 MG TAB PO PRN ×2 (13:31→19:08)
[2022-12-09] MEDS: Torsemide 10 MG TAB PO SCH (15:14)
[2022-12-09] MEDS ORDERED: Atorvastatin Calcium 40 MG TAB PO SCH (21:00)
[2022-12-09] MEDS: cefTRIAXone\\ROCEPHIN 2 GM in Sodium Chloride 0.9% 100 ML IVPB SCH (21:27)
[2022-12-09] MEDS: Exemestane 25 MG TAB PO SCH (22:16)
[2022-12-10 06:06] LABS: #Eosinphils 0.1 thou/uL (0.0-0.7); #Monocytes 0.3 thou/uL (0.11-0.59); #Neutrophils 3.6 thou/uL (1.40-6.50); %Basophils 0.6 % (0.0-1.0); %Lymphocytes 19.1 % (21.0-51.0); %Monocytes 6.3 % (0.0-10.0); %Neutrophils 70.8 % (42.0-75.0); Hematocrit 28.2 % (36.0-47.0); Hemoglobin 8.9 g/dL (12.0-16.0); Mean Corpuscular HGB CONC 31.6 g/dL (32.0-36.0); Mean Corpuscular Hemoglobin 25.1 pg (27.0-31.0); Mean Corpuscular Volume 79.7 fl (78.0-98.0); Mean Platelet Volume 9.1 fL (7.4-10.4); Platelet Count 147 10x3/uL (130-400); Red Blood Cell (RBC) Count 3.54 mill/uL (4.20-5.40); White Blood Cell (WBC) Count 5.1 10x3/uL (4.8-10.8)
[2022-12-10 06:27] LABS: ALT (SGPT) 120 U/L (8-55); AST (SGOT) 107 U/L (5-34); Albumin 3.6 g/dL (3.5-5.0); Alkaline Phosphatase 173 U/L (40-110); Anion Gap 19 mmol/L (10-20); BUN (Urea Nitrogen) 46 mg/dL (9.8-20.1); Bilirubin, Total 0.4 mg/dL (0.2-1.2); Calc. Creatinine Clearance 19 mL/min (70-130); Calcium 8.8 mg/dL (7.8-10.44); Carbon Dioxide 25 mmol/L (22-29); Chloride 92 mmol/L (98-107); Estimated GFR 14; Globulin 3.6 g/dL (2.4-3.5); Glucose 172 mg/dL (70-105); Magnesium 2.3 mg/dL (1.6-2.6); Potassium 3.7 mmol/L (3.5-5.1); Protein, Total 7.2 g/dL (6.0-8.3); Sodium 132 mmol/L (136-145)
[2022-12-10] MEDS: Acetaminophen 325 MG TAB PO PRN ×2 (08:16→21:39)
[2022-12-10] MEDS ORDERED: Heparin 10,000 UNITS/ 10 ML VIAL ONE (08:59)
[2022-12-10] MEDS ORDERED: Cefepime 1 GM in Sodium Chloride 0.9% 100 ML IVPB SCH (10:45)
[2022-12-10] MEDS: EVEROLIMUS 10 MG PO SCH (13:39)
[2022-12-10] MEDS: Azithromycin 250 MG TAB PO SCH (13:39)
[2022-12-10] MEDS: Torsemide 10 MG TAB PO SCH (13:40)
[2022-12-10] MEDS: Calcitriol 0.25 MCG CAP PO SCH (13:40)
[2022-12-10] MEDS ORDERED: predniSONE 50 MG TAB PO SCH (14:15)
[2022-12-10] MEDS ORDERED: Pantoprazole 40 MG VIAL IVP SCH (14:15)
[2022-12-10 16:02] LABS: Hematocrit 29.3 % (36.0-47.0); Hemoglobin 9.3 g/dL (12.0-16.0)
[2022-12-10] MEDS: Exemestane 25 MG TAB PO SCH (21:40)
[2022-12-10] MEDS: Cefepime 1 GM in Sodium Chloride 0.9% 100 ML IVPB SCH (21:41)
[2022-12-10] MEDS: Pantoprazole 40 MG VIAL IVP SCH (21:42)
[2022-12-11] MEDS: Acetaminophen 325 MG TAB PO PRN ×2 (04:50→14:39)
[2022-12-11 04:59] LABS: #Monocytes 0.2 thou/uL (0.11-0.59); #Neutrophils 3.7 thou/uL (1.40-6.50); %Basophils 0.2 % (0.0-1.0); %Monocytes 4.7 % (0.0-10.0); %Neutrophils 75.8 % (42.0-75.0); Hematocrit 28.2 % (36.0-47.0); Hemoglobin 9.2 g/dL (12.0-16.0); Mean Corpuscular HGB CONC 32.6 g/dL (32.0-36.0); Mean Corpuscular Hemoglobin 25.5 pg (27.0-31.0); Mean Corpuscular Volume 78.1 fl (78.0-98.0); Mean Platelet Volume 9.1 fL (7.4-10.4); Platelet Count 152 10x3/uL (130-400); RBC Distribution Width 18.1 % (11.5-14.5); Red Blood Cell (RBC) Count 3.61 mill/uL (4.20-5.40); White Blood Cell (WBC) Count 4.9 10x3/uL (4.8-10.8)
[2022-12-11 05:30] LABS: ALT (SGPT) 125 U/L (8-55); AST (SGOT) 104 U/L (5-34); Albumin 3.8 g/dL (3.5-5.0); Alkaline Phosphatase 171 U/L (40-110); Anion Gap 19 mmol/L (10-20); BUN (Urea Nitrogen) 27 mg/dL (9.8-20.1); Bilirubin, Total 0.4 mg/dL (0.2-1.2); Calc. Creatinine Clearance 23 mL/min (70-130); Calcium 8.7 mg/dL (7.8-10.44); Carbon Dioxide 25 mmol/L (22-29); Chloride 89 mmol/L (98-107); Estimated GFR 17; Globulin 3.7 g/dL (2.4-3.5); Glucose 308 mg/dL (70-105); Iron 209 ug/dL (50-170); Iron Binding Capacity, Total 238 mcg/dL (265-497); Potassium 2.9 mmol/L (3.5-5.1); Protein, Total 7.5 g/dL (6.0-8.3); Sodium 130 mmol/L (136-145)
[2022-12-11] MEDS: HumaLOG 300 UNITS/3 ML VIAL SC PRN (06:22)
[2022-12-11] MEDS ORDERED: Epoetin (ESRD) 20,000 UNITS/ML MDV SC SCH (07:45)
[2022-12-11] MEDS: Cefepime 1 GM in Sodium Chloride 0.9% 100 ML IVPB SCH (11:50)
[2022-12-11] MEDS ORDERED: Epoetin (ESRD) 10,000 UNITS/ML VIAL SC SCH (12:00)
[2022-12-11] MEDS ORDERED: Ondansetron PF 4 MG/2 ML Vial ONE (12:19)
[2022-12-11] MEDS ORDERED: Lidocaine 1% PF 5 ML VIAL ONE (12:19)
[2022-12-11] MEDS ORDERED: PROPOFOL 200 MG/20 ML VIAL ONE (12:19)
[2022-12-11] MEDS ORDERED: fentaNYL 50 mcg/mL 1 mL Vial ONE (12:29)
[2022-12-11] MEDS ORDERED: Ondansetron HCl/PF 4 MG/2 ML Vial IVP PRN (12:52)
[2022-12-11] MEDS ORDERED: Morphine Sulfate 2 MG/ML SYRINGE SLOW IVP PRN (12:52)
[2022-12-11] MEDS: Pantoprazole 40 MG VIAL IVP SCH ×2 (14:15→20:07)
[2022-12-11] MEDS: Potassium Chloride 20 MEQ in Premix Bag 1 BAG IVPB SCH ×2 (14:39→18:39)
[2022-12-11] MEDS: predniSONE 50 MG TAB PO SCH (14:40)
[2022-12-11] MEDS: Torsemide 10 MG TAB PO SCH (14:41)
[2022-12-11] MEDS: Calcitriol 0.25 MCG CAP PO SCH (14:41)
[2022-12-11] MEDS: EVEROLIMUS 10 MG PO SCH (14:41)
[2022-12-11] MEDS: Azithromycin 250 MG TAB PO SCH (15:00)
[2022-12-11] MEDS ORDERED: Potassium Chloride 20 MEQ in Premix Bag 1 BAG IVPB SCH (18:30)
[2022-12-11] MEDS: Ondansetron PF 4 MG/2 ML Vial IVP PRN (18:44)
[2022-12-11] MEDS: Exemestane 25 MG TAB PO SCH (20:06)
[2022-12-12 05:48] LABS: #Monocytes 0.2 thou/uL (0.11-0.59); #Neutrophils 4.4 thou/uL (1.40-6.50); %Basophils 0.5 % (0.0-1.0); %Lymphocytes 13.9 % (21.0-51.0); %Monocytes 3.3 % (0.0-10.0); %Neutrophils 76.3 % (42.0-75.0); Hematocrit 28.1 % (36.0-47.0); Hemoglobin 8.9 g/dL (12.0-16.0); Mean Corpuscular HGB CONC 31.7 g/dL (32.0-36.0); Mean Corpuscular Hemoglobin 25.1 pg (27.0-31.0); Mean Corpuscular Volume 79.4 fl (78.0-98.0); Mean Platelet Volume 9.4 fL (7.4-10.4); RBC Distribution Width 17.9 % (11.5-14.5); Red Blood Cell (RBC) Count 3.54 mill/uL (4.20-5.40); White Blood Cell (WBC) Count 5.8 10x3/uL (4.8-10.8)
[2022-12-12 06:05] LABS: Manual Diff?? YES
[2022-12-12 06:06] LABS: Platelet Count 129 10x3/uL (130-400)
[2022-12-12 06:17] LABS: ALT (SGPT) 116 U/L (8-55); AST (SGOT) 87 U/L (5-34); Albumin 3.6 g/dL (3.5-5.0); Alkaline Phosphatase 181 U/L (40-110); Anion Gap 21 mmol/L (10-20); BUN (Urea Nitrogen) 40 mg/dL (9.8-20.1); Bilirubin, Total 0.3 mg/dL (0.2-1.2); Calc. Creatinine Clearance 15 mL/min (70-130); Calcium 7.9 mg/dL (7.8-10.44); Carbon Dioxide 20 mmol/L (22-29); Chloride 94 mmol/L (98-107); Estimated GFR 11; Globulin 3.5 g/dL (2.4-3.5); Glucose 292 mg/dL (70-105); Potassium 3.7 mmol/L (3.5-5.1); Protein, Total 7.1 g/dL (6.0-8.3); Sodium 131 mmol/L (136-145)
[2022-12-12] MEDS: HumaLOG 300 UNITS/3 ML VIAL SC PRN ×2 (06:26→17:59)
[2022-12-12 07:51] LABS: Band 31 % (5-11); CellaVision Operator ID LAB.GE; Large Platelets 3.8 % (0-5); Lymphocytes 11 % (21-51); Monocytes 4 % (0-10); Myelocyte 1 % (0-0); Neutrophil 52 % (42-75); Platelet Adequacy Comment Platelets Decreased; Polychromasia SLIGHT = 2-3 cells HPF (0-2); Total Cell Count 105
[2022-12-12] MEDS: Acetaminophen 325 MG TAB PO PRN ×2 (08:56→20:44)
[2022-12-12] MEDS: Pantoprazole 40 MG VIAL IVP SCH ×2 (08:57→20:43)
[2022-12-12] MEDS: Calcitriol 0.25 MCG CAP PO SCH (08:57)
[2022-12-12] MEDS: predniSONE 50 MG TAB PO SCH (08:57)
[2022-12-12] MEDS: Torsemide 10 MG TAB PO SCH (08:57)
[2022-12-12] MEDS: EVEROLIMUS 10 MG PO SCH (08:58)
[2022-12-12] MEDS ORDERED: Magnevist 469MG/ML 20 ML VIAL ONE (10:33)
[2022-12-12] MEDS: Ondansetron PF 4 MG/2 ML Vial IVP PRN (10:58)
[2022-12-12] MEDS: Cefepime 1 GM in Sodium Chloride 0.9% 100 ML IVPB SCH (11:39)
[2022-12-12] MEDS ORDERED: Heparin 10,000 UNITS/ 10 ML VIAL ONE (12:35)
[2022-12-12] MEDS ORDERED: GoLYTELY 4,000 ml Bottle PO SCH (14:00)
[2022-12-12] MEDS: Exemestane 25 MG TAB PO SCH (20:42)
[2022-12-13 06:17] LABS: Hematocrit 33.1 % (36.0-47.0); Hemoglobin 10.4 g/dL (12.0-16.0); Mean Corpuscular HGB CONC 31.4 g/dL (32.0-36.0); Mean Corpuscular Hemoglobin 24.7 pg (27.0-31.0); Mean Corpuscular Volume 78.6 fl (78.0-98.0); Mean Platelet Volume 9.5 fL (7.4-10.4); Platelet Count 203 10x3/uL (130-400); RBC Distribution Width 18.4 % (11.5-14.5); Red Blood Cell (RBC) Count 4.21 mill/uL (4.20-5.40); White Blood Cell (WBC) Count 11.2 10x3/uL (4.8-10.8)
[2022-12-13 06:29] LABS: Delete Auto Diff?? YES; Manual Diff?? YES
[2022-12-13 06:49] LABS: ALT (SGPT) 200 U/L (8-55); AST (SGOT) 212 U/L (5-34); Alkaline Phosphatase 209 U/L (40-110); Anion Gap 22 mmol/L (10-20); BUN (Urea Nitrogen) 26 mg/dL (9.8-20.1); Bilirubin, Total 0.4 mg/dL (0.2-1.2); Calc. Creatinine Clearance 19 mL/min (70-130); Calcium 8.4 mg/dL (7.8-10.44); Carbon Dioxide 26 mmol/L (22-29); Chloride 91 mmol/L (98-107); Estimated GFR 13; Glucose 128 mg/dL (70-105); Magnesium 2.1 mg/dL (1.6-2.6); Potassium 2.8 mmol/L (3.5-5.1); Sodium 136 mmol/L (136-145)
[2022-12-13 06:56] LABS: Hypochromia SLIGHT = 6-15 cells HPF (0-5); Myelocyte 1 % (0-0); Polychromasia SLIGHT = 2-3 cells HPF (0-2); Reactive Lymphocytes 1 % (0-10)
[2022-12-13 07:22] LABS: Anisocytosis SLIGHT = 6-15 cells HPF (0-5); Band 11 % (5-11); CellaVision Operator ID LAB.NR; Large Platelets 1.9 % (0-5); Lymphocytes 15 % (21-51); Metamyelocyte 1 % (0-0); Monocytes 8 % (0-10); Neutrophil 65 % (42-75); Nucleated RBC (Manual Ct) 1 % (0); Platelet Adequacy Comment Platelets Decreased; Smudge Cells 10.5 %; Total Cell Count 105
[2022-12-13] MEDS ORDERED: Midazolam HCl 2 mg/2 ml Vial ONE (07:59)
[2022-12-13] MEDS ORDERED: PROPOFOL 200 MG/20 ML VIAL ONE (08:05)
[2022-12-13] MEDS ORDERED: Lidocaine 1% PF 5 ML VIAL ONE (08:05)
[2022-12-13] MEDS ORDERED: Potassium Chloride 20 MEQ TAB PO SCH (09:00)
[2022-12-13] MEDS: Pantoprazole 40 MG VIAL IVP SCH ×2 (09:20→21:06)
[2022-12-13] MEDS: Calcitriol 0.25 MCG CAP PO SCH (09:20)
[2022-12-13] MEDS: Torsemide 10 MG TAB PO SCH (09:20)
[2022-12-13] MEDS: Cefepime 1 GM in Sodium Chloride 0.9% 100 ML IVPB SCH (09:20)
[2022-12-13] MEDS: EVEROLIMUS 10 MG PO SCH (09:30)
[2022-12-13] MEDS: Acetaminophen 325 MG TAB PO PRN ×2 (09:42→15:41)
[2022-12-13] MEDS: HumaLOG 300 UNITS/3 ML VIAL SC PRN ×2 (12:10→18:06)
[2022-12-13] MEDS: Exemestane 25 MG TAB PO SCH (21:06)
[2022-12-13] MEDS: Morphine IR Tab 15 MG TAB PO SCH (21:06)
[2022-12-13] MEDS: Ondansetron PF 4 MG/2 ML Vial IVP PRN (23:53)
[2022-12-14] MEDS ORDERED: Morphine 2 MG/ML VIAL SLOW IVP PRN ×2 (04:38→16:55)
[2022-12-14 05:42] LABS: #Monocytes 0.5 thou/uL (0.11-0.59); #Neutrophils 6.9 thou/uL (1.40-6.50); %Basophils 0.3 % (0.0-1.0); %Eosinophils 0.3 % (0.0-10.0); %Lymphocytes 11.7 % (21.0-51.0); %Monocytes 5.5 % (0.0-10.0); %Neutrophils 79.9 % (42.0-75.0); Hematocrit 29.3 % (36.0-47.0); Hemoglobin 9.1 g/dL (12.0-16.0); Mean Corpuscular HGB CONC 31.1 g/dL (32.0-36.0); Mean Corpuscular Hemoglobin 24.9 pg (27.0-31.0); Mean Corpuscular Volume 80.1 fl (78.0-98.0); Mean Platelet Volume 9.7 fL (7.4-10.4); Platelet Count 140 10x3/uL (130-400); RBC Distribution Width 19.2 % (11.5-14.5); Red Blood Cell (RBC) Count 3.66 mill/uL (4.20-5.40); White Blood Cell (WBC) Count 8.6 10x3/uL (4.8-10.8)
[2022-12-14 05:51] LABS: Manual Diff?? YES
[2022-12-14 06:06] LABS: ALT (SGPT) 233 U/L (8-55); AST (SGOT) 265 U/L (5-34); Albumin 3.4 g/dL (3.5-5.0); Alkaline Phosphatase 209 U/L (40-110); Anion Gap 23 mmol/L (10-20); BUN (Urea Nitrogen) 36 mg/dL (9.8-20.1); Bilirubin, Total 0.5 mg/dL (0.2-1.2); Calc. Creatinine Clearance 13 mL/min (70-130); Calcium 7.5 mg/dL (7.8-10.44); Carbon Dioxide 20 mmol/L (22-29); Chloride 91 mmol/L (98-107); Estimated GFR 9; Globulin 3.3 g/dL (2.4-3.5); Glucose 179 mg/dL (70-105); Magnesium 1.7 mg/dL (1.6-2.6); Protein, Total 6.7 g/dL (6.0-8.3); Sodium 131 mmol/L (136-145)
[2022-12-14 06:11] LABS: Potassium 2.6 mmol/L (3.5-5.1)
[2022-12-14 06:22] LABS: Anisocytosis MODERATE=16-30 cells HPF (0-5); Band 15 % (5-11); CellaVision Operator ID lab.sh2; Hypochromia MODERATE=16-30 cells HPF (0-5); Lymphocytes 9 % (21-51); Microcytosis SLIGHT = 6-15 cells HPF (0-5); Monocytes 2 % (0-10); Neutrophil 75 % (42-75); Nucleated RBC (Manual Ct) 3 % (0); Platelet Adequacy Comment Platelets Normal; Polychromasia MODERATE = 3-4 cells HPF (0-2); Smudge Cells 5.9 %; Total Cell Count 102
[2022-12-14] MEDS ORDERED: Potassium Chloride 20 MEQ TAB PO SCH (06:30)
[2022-12-14] MEDS: Acetaminophen 325 MG TAB PO PRN (10:09)
[2022-12-14] MEDS: Calcitriol 0.25 MCG CAP PO SCH (10:10)
[2022-12-14] MEDS: Torsemide 10 MG TAB PO SCH (10:10)
[2022-12-14] MEDS: EVEROLIMUS 10 MG PO SCH (10:11)
[2022-12-14] MEDS: Pantoprazole 40 MG VIAL IVP SCH ×2 (10:11→20:15)
[2022-12-14] MEDS: Potassium Chloride 20 MEQ in Premix Bag 1 BAG IVPB SCH ×2 (10:14→19:51)
[2022-12-14] MEDS: Ondansetron PF 4 MG/2 ML Vial IVP PRN ×2 (10:21→20:11)
[2022-12-14 11:14] LABS: Potassium 3.4 mmol/L (3.5-5.1)
[2022-12-14] MEDS ORDERED: Famotidine/PF 20 mg/2ml Vial ONE (13:08)
[2022-12-14] MEDS ORDERED: Ondansetron PF 4 MG/2 ML Vial ONE (13:27)
[2022-12-14] MEDS ORDERED: fentaNYL PF 100 MCG/2 ML SYRINGE ONE (13:49)
[2022-12-14] MEDS ORDERED: SUGAMMADEX SODIUM 200 MG/2 ML VIAL ONE (13:49)
[2022-12-14] MEDS ORDERED: Bupivacaine 0.25% HCL 30 ML VIAL ONE (14:02)
[2022-12-14] MEDS ORDERED: EPINEPHrine 1 MG/ML AMP ONE (14:02)
[2022-12-14] MEDS ORDERED: Lidocaine 1% PF 5 ML VIAL ONE (14:34)
[2022-12-14] MEDS ORDERED: PROPOFOL 200 MG/20 ML VIAL ONE (14:34)
[2022-12-14] MEDS ORDERED: Rocuronium Bromide 10 MG/ML (10ML VIAL) ONE (14:34)
[2022-12-14] MEDS ORDERED: Cefepime 1 GM in Sodium Chloride 0.9% 100 ML IVPB SCH (14:45)
[2022-12-14] MEDS ORDERED: Promethazine HCl 25 MG/ML VIAL IM PRN (16:32)
[2022-12-14] MEDS ORDERED: Ondansetron HCl/PF 4 MG/2 ML Vial IVP PRN (16:32)
[2022-12-14] MEDS ORDERED: fentaNYL 50 mcg/mL 1 mL Vial ONE (16:59)
[2022-12-14] MEDS: Morphine IR Tab 15 MG TAB PO SCH (21:59)
[2022-12-14] MEDS: Exemestane 25 MG TAB PO SCH (22:02)
[2022-12-15 05:36] LABS: #Monocytes 0.4 thou/uL (0.11-0.59); #Neutrophils 8.3 thou/uL (1.40-6.50); %Basophils 0.2 % (0.0-1.0); %Eosinophils 0.1 % (0.0-10.0); %Lymphocytes 6.7 % (21.0-51.0); %Monocytes 4.5 % (0.0-10.0); %Neutrophils 86.5 % (42.0-75.0); Hematocrit 27.4 % (36.0-47.0); Hemoglobin 8.5 g/dL (12.0-16.0); Mean Corpuscular Hemoglobin 25.1 pg (27.0-31.0); Mean Corpuscular Volume 81.1 fl (78.0-98.0); Mean Platelet Volume 9.4 fL (7.4-10.4); Platelet Count 137 10x3/uL (130-400); RBC Distribution Width 19.5 % (11.5-14.5); Red Blood Cell (RBC) Count 3.38 mill/uL (4.20-5.40); White Blood Cell (WBC) Count 9.6 10x3/uL (4.8-10.8)
[2022-12-15 06:09] LABS: ALT (SGPT) 270 U/L (8-55); AST (SGOT) 345 U/L (5-34); Albumin 3.1 g/dL (3.5-5.0); Alkaline Phosphatase 225 U/L (40-110); Anion Gap 25 mmol/L (10-20); BUN (Urea Nitrogen) 46 mg/dL (9.8-20.1); Bilirubin, Total 0.6 mg/dL (0.2-1.2); Calc. Creatinine Clearance 11 mL/min (70-130); Carbon Dioxide 15 mmol/L (22-29); Chloride 94 mmol/L (98-107); Estimated GFR 7; Globulin 3.3 g/dL (2.4-3.5); Glucose 247 mg/dL (70-105); Magnesium 1.8 mg/dL (1.6-2.6); Potassium 3.9 mmol/L (3.5-5.1); Protein, Total 6.4 g/dL (6.0-8.3); Sodium 130 mmol/L (136-145)
[2022-12-15 06:14] LABS: Calcium 6.8 mg/dL (7.8-10.44)
[2022-12-15] MEDS: Torsemide 10 MG TAB PO SCH (08:46)
[2022-12-15] MEDS: Calcitriol 0.25 MCG CAP PO SCH (08:46)
[2022-12-15] MEDS: Acetaminophen 325 MG TAB PO PRN ×2 (08:46→23:36)
[2022-12-15] MEDS: EVEROLIMUS 10 MG PO SCH (08:47)
[2022-12-15] MEDS: Pantoprazole 40 MG VIAL IVP SCH ×2 (08:47→21:45)
[2022-12-15] MEDS ORDERED: Calcium Gluconate 4.6 MEQ in Sodium Chloride 0.9% 100 ML IVPB SCH (09:00)
[2022-12-15] MEDS ORDERED: CALCIUM GLUC 1 GM/NS 50 ML 1 GM in Premix Bag 1 BAG IVPB SCH (09:00)
[2022-12-15 11:44] LABS: Actual Bicarbonate (HCO3a) 17.9 mEq/L (22-28); Base Excess (BEa) -5.3 mEq/L (-2.0 to +3.0); CO2 Tension 27.1 mmHg (35.0-45.0); Calcium, Ionized (arterial) 0.82 mmol/L (1.12-1.30); Carboxyhemoglobin (COHb) 0.9 gm% (0.0-3.0); Hematocrit-ABG 28 % (36.0-47.0); Hemoglobin (Hb) 9.5 g/dL (12.0-16.0); Potassium - ABG Lab 3.72 mmol/L (3.70-5.30); pH, Arterial 7.437 (7.35-7.45)
[2022-12-15 11:46] LABS: Puncture Site Right Brachial
[2022-12-15 11:47] LABS: ALV-art Gradient 114.285 mmHg (0-20)
[2022-12-15 11:52] LABS: Lactic Acid 1.4 mmol/L (0.5-2.2)
[2022-12-15 12:10] VITALS: BP 117/60
[2022-12-15] MEDS ORDERED: Heparin 10,000 UNITS/ 10 ML VIAL ONE (12:33)
[2022-12-15] MEDS ORDERED: Cefepime 1 GM in Sodium Chloride 0.9% 100 ML IVPB SCH (18:00)
[2022-12-15] MEDS ORDERED: Lorazepam 2 MG/ML VIAL SLOW IVP PRN (18:27)
[2022-12-15] MEDS: HumaLOG 300 UNITS/3 ML VIAL SC PRN (18:44)
[2022-12-15] MEDS ORDERED: Albumin 25% 25 GM/100 ML BOT IVPB SCH ×2 (19:45→20:45)
[2022-12-15] MEDS ORDERED: Albumin 25% 100 ML ONE (19:49)
[2022-12-15] MEDS ORDERED: Piperacillin/Tazobactam 3.375 GM in Sodium Chloride 0.9% 100 ML IVPB SCH (20:00)
[2022-12-15] MEDS: Exemestane 25 MG TAB PO SCH (21:44)
[2022-12-15] MEDS: levETIRAcetam 500 MG/5 ML VIAL SLOW IVP SCH (21:44)
[2022-12-15] MEDS: Morphine IR Tab 15 MG TAB PO SCH (22:00)
[2022-12-16] MEDS: Piperacillin/Tazobactam 3.375 GM in Sodium Chloride 0.9% 100 ML IVPB SCH ×2 (00:53→11:46)
[2022-12-16] MEDS ORDERED: Sodium Chloride 0.9% 500 ML IV SCH (01:15)
[2022-12-16] MEDS ORDERED: Sodium Bicarb 50 MEQ/50 ML VIAL IVP SCH ×2 (01:15→04:00)
[2022-12-16 01:22] LABS: Anion Gap 25 mmol/L (10-20); BUN (Urea Nitrogen) 20 mg/dL (9.8-20.1); Calc. Creatinine Clearance 21 mL/min (70-130); Calcium 8.5 mg/dL (7.8-10.44); Carbon Dioxide 22 mmol/L (22-29); Chloride 96 mmol/L (98-107); Estimated GFR 17; Glucose 139 mg/dL (70-105); Potassium 3.5 mmol/L (3.5-5.1); Sodium 139 mmol/L (136-145)
[2022-12-16 02:36] LABS: #Monocytes 0.4 thou/uL (0.11-0.59); #Neutrophils 5.6 thou/uL (1.40-6.50); %Basophils 0.3 % (0.0-1.0); %Lymphocytes 18.4 % (21.0-51.0); %Monocytes 5.2 % (0.0-10.0); %Neutrophils 73.7 % (42.0-75.0); Hematocrit 24.3 % (36.0-47.0); Hemoglobin 7.5 g/dL (12.0-16.0); Manual Diff?? YES; Mean Corpuscular HGB CONC 30.9 g/dL (32.0-36.0); Mean Corpuscular Hemoglobin 25.4 pg (27.0-31.0); Mean Corpuscular Volume 82.4 fl (78.0-98.0); Mean Platelet Volume 9.8 fL (7.4-10.4); Platelet Count 115 10x3/uL (130-400); RBC Distribution Width 20.2 % (11.5-14.5); Red Blood Cell (RBC) Count 2.95 mill/uL (4.20-5.40); White Blood Cell (WBC) Count 7.6 10x3/uL (4.8-10.8)
[2022-12-16 03:29] LABS: ALT (SGPT) 498 U/L (8-55); AST (SGOT) 598 U/L (5-34); Albumin 3.6 g/dL (3.5-5.0); Alkaline Phosphatase 241 U/L (40-110); Anion Gap 26 mmol/L (10-20); BUN (Urea Nitrogen) 20 mg/dL (9.8-20.1); Bilirubin, Total 1.6 mg/dL (0.2-1.2); Calc. Creatinine Clearance 22 mL/min (70-130); Calcium 7.8 mg/dL (7.8-10.44); Carbon Dioxide 16 mmol/L (22-29); Chloride 100 mmol/L (98-107); Estimated GFR 18; Globulin 2.8 g/dL (2.4-3.5); Glucose 127 mg/dL (70-105); Potassium 3.2 mmol/L (3.5-5.1); Protein, Total 6.4 g/dL (6.0-8.3); Sodium 139 mmol/L (136-145)
[2022-12-16 04:15] LABS: Anisocytosis MODERATE=16-30 cells HPF (0-5); Band 16 % (5-11); Burr Cells SLIGHT = 2-5 cells HPF (0-1); CellaVision Operator ID lab.sh2; Large Platelets 9.4 % (0-5); Lymphocytes 18 % (21-51); Macrocytosis SLIGHT = 6-15 cells HPF (0-5); Monocytes 5 % (0-10); Neutrophil 61 % (42-75); Nucleated RBC (Manual Ct) 3 % (0); Ovalocytes SLIGHT = 2-5 cells HPF (0-1); Platelet Adequacy Comment Platelets Decreased; Poikilocytosis SLIGHT = 6-15 cells HPF (0-5); Polychromasia MODERATE = 3-4 cells HPF (0-2); Smudge Cells 5.7 %; Total Cell Count 106
[2022-12-16 05:12] LABS: Lactic Acid 10.1 mmol/L (0.5-2.2)
[2022-12-16] MEDS ORDERED: NOREPINEPHRINE 8 MG/250 ML-D5W 250 ML IVPB SCH (05:15)
[2022-12-16 05:36] VITALS: BMI 28.3
[2022-12-16] MEDS ORDERED: fentaNYL 50 mcg/mL 1 mL Vial SLOW IVP SCH ×3 (06:00→12:30)
[2022-12-16] MEDS ORDERED: Potassium Chloride 10 MEQ in Premix Bag 1 BAG IVPB SCH (09:00)
[2022-12-16 09:45] LABS: Anion Gap 41 mmol/L (10-20); BUN (Urea Nitrogen) 27 mg/dL (9.8-20.1); Calc. Creatinine Clearance 19 mL/min (70-130); Chloride 96 mmol/L (98-107); Estimated GFR 14; Glucose 89 mg/dL (70-105); Potassium 4.2 mmol/L (3.5-5.1); Sodium 141 mmol/L (136-145)
[2022-12-16 09:58] LABS: Carbon Dioxide 8 mmol/L (22-29)
[2022-12-16 10:14] LABS: Hemoglobin 9.7 g/dL (12.0-16.0); Mean Corpuscular HGB CONC 29.4 g/dL (32.0-36.0); Mean Platelet Volume 10.2 fL (7.4-10.4); Platelet Count 152 10x3/uL (130-400); RBC Distribution Width 20.8 % (11.5-14.5); Red Blood Cell (RBC) Count 3.73 mill/uL (4.20-5.40); White Blood Cell (WBC) Count 17.5 10x3/uL (4.8-10.8)
[2022-12-16] MEDS ORDERED: Lorazepam 2 MG/ML VIAL SLOW IVP SCH (10:30)
[2022-12-16] MEDS ORDERED: levETIRAcetam 500 MG/5 ML VIAL SLOW IVP SCH (10:30)
[2022-12-16] MEDS ORDERED: Lacosamide 200 MG in Sodium Chloride 0.9% 50 ML IVPB SCH (10:30)
[2022-12-16] MEDS: levETIRAcetam 500 MG/5 ML VIAL SLOW IVP SCH (10:35)
[2022-12-16] MEDS: Pantoprazole 40 MG VIAL IVP SCH (10:35)
[2022-12-16 10:36] LABS: Delete Auto Diff?? YES; Manual Diff?? YES; Mean Corpuscular Volume 88.5 fl (78.0-98.0)
[2022-12-16] MEDS: EVEROLIMUS 10 MG PO SCH (10:36)
[2022-12-16] MEDS: Torsemide 10 MG TAB PO SCH (10:36)
[2022-12-16] MEDS: Calcitriol 0.25 MCG CAP PO SCH (10:37)
[2022-12-16] MEDS ORDERED: Iopamidol-370 76% 500 ML MDV (1 ML CHARGE) ONE (10:48)
[2022-12-16] MEDS ORDERED: Sodium Bicarbonate 150 MEQ in Dextrose 5% in Water 1,000 ML IV SCH (11:15)
[2022-12-16 11:27] LABS: Lactic Acid 16.6 mmol/L (0.5-2.2)
[2022-12-16 11:34] LABS: Anisocytosis MODERATE=16-30 cells HPF (0-5); Band 21 % (5-11); Burr Cells MODERATE= 6-15 cells HPF (0-1); CellaVision Operator ID LAB.GE; Giant Platelets 0.9 % (0-5); Hypochromia SLIGHT = 6-15 cells HPF (0-5); Large Platelets 1.8 % (0-5); Lymphocytes 16 % (21-51); Metamyelocyte 6 % (0-0); Monocytes 1 % (0-10); Myelocyte 4 % (0-0); Neutrophil 51 % (42-75); Nucleated RBC (Manual Ct) 3 % (0); Platelet Adequacy Comment Platelets Normal; Polychromasia MODERATE = 3-4 cells HPF (0-2); Reactive Lymphocytes 1 % (0-10); Total Cell Count 112
[2022-12-16 12:02] LABS: Calcium, Ionized (venous) 0.82 mmol/L (1.16-1.32); Chloride (VBG) 95 mmol/L (98-106); Hematocrit-VBG 31 % (36.0-47.0); Hemoglobin (Hb) 10.6 g/dL (11.7-16.0); Potassium (VBG) 5.22 mmol/L (3.70-5.30); Sodium 139.1 mmol/L (133-146)
[2022-12-16 12:03] LABS: Actual Bicarbonate (HCO3v) 5.8 mEq/L (22-28); pH (venous) 6.996 (7.32-7.43)
[2022-12-16] MEDS ORDERED: Vecuronium 10 MG VIAL ONE (12:13)
[2022-12-16] MEDS ORDERED: PROPOFOL 0 ML ONE (12:13)
[2022-12-16] MEDS ORDERED: Rocuronium Bromide 50 MG/5 ML VIAL IVP SCH (12:15)
[2022-12-16] MEDS ORDERED: Fentanyl 100 MCG/2 ML VIAL SLOW IVP SCH (12:15)
[2022-12-16] MEDS ORDERED: Sodium Bicarb 50 MEQ/50 ML VIAL ONE (12:20)
[2022-12-16] MEDS ORDERED: Ventilator Sedation Protocol 1 EACH FS SCH (12:25)
[2022-12-16] MEDS ORDERED: Dexmedetomidine 400 MCG, Admixture Fee 1 EACH in Sodium Chloride 0.9% 96 ML IVPB SCH (12:30)
[2022-12-16] MEDS ORDERED: Fentanyl BOLUS 250 ML IVPB PRN (12:30)
[2022-12-16] MEDS ORDERED: Lorazepam 2 MG/ML VIAL SLOW IVP PRN (12:30)
[2022-12-16] MEDS ORDERED: DISCONTINUE PREVIOUS NARCOTIC PAIN MEDICATIONS AND BENZODIAZEPINES FS SCH (12:30)
[2022-12-16] MEDS ORDERED: Propofol BOLUS 1,000 MG/100 ML VIAL IV PRN (12:30)
[2022-12-16] MEDS ORDERED: Fentanyl CADD 100 ML IV SCH (12:30)
[2022-12-16] MEDS ORDERED: Propofol 1,000 MG/100 ML VIAL IV PRN (12:30)
[2022-12-16] MEDS ORDERED: Morphine 2 MG/ML VIAL SLOW IVP PRN (12:30)
[2022-12-16 12:59] LABS: Base Excess (BEa) -15.5 mEq/L (-2.0 to +3.0); CO2 Tension 26.1 mmHg (35.0-45.0); Calcium, Ionized (arterial) 0.85 mmol/L (1.12-1.30); Carboxyhemoglobin (COHb) 0.3 gm% (0.0-3.0); Hematocrit-ABG 28 % (36.0-47.0); Hemoglobin (Hb) 9.4 g/dL (12.0-16.0); O2 Tension (PaO2), arterial 407.9 mmHg (80.0-100.0); pH, Arterial 7.226 (7.35-7.45)
[2022-12-16 13:02] LABS: Actual Bicarbonate (HCO3a) 10.6 mEq/L (22-28); Potassium - ABG Lab 6.14 mmol/L (3.70-5.30)
[2022-12-16 13:03] LABS: ALV-art Gradient 272.475 mmHg (0-20); Puncture Site Right Brachial
[2022-12-16] MEDS ORDERED: Vasopressin 20 UNITS, Admixture Fee 1 EACH in Sodium Chloride 0.9% 50 ML IV SCH (13:15)
[2022-12-16 20:04] VITALS: TEMP 97.5
== END 2022-12-16 13:36 | disposition expired | DRG 853 ==
LOC: ERS 09:12 → SUATTDRO 09:12 → ERHOLD 16:14 → 2SW 19:41 → OBSVTOIN 12-10 12:48 → SURG A 12-14 13:12 → 2SW 12-14 13:12 → IMCU/EMU 12-15 14:50 → CCU 12-16 05:13
PROVIDERS: ADMIT Family Medicine; ATTEND Family Medicine
PROC: 30233N1 Transfusion of Nonautologous Red Blood Cells into Peripheral Vein, Percutaneous Approach (ICD-10-PCS; 2022-12-08)
PROC: 3E03329 Introduction of Other Anti-infective into Peripheral Vein, Percutaneous Approach (ICD-10-PCS; 2022-12-10)
PROC: 0DJ08ZZ Inspection of Upper Intestinal Tract, Via Natural or Artificial Opening Endoscopic (ICD-10-PCS; principal; 2022-12-11)
PROC: 0DBG8ZX Excision of Left Large Intestine, Via Natural or Artificial Opening Endoscopic, Diagnostic (ICD-10-PCS; 2022-12-13)
PROC: 0DBF8ZX Excision of Right Large Intestine, Via Natural or Artificial Opening Endoscopic, Diagnostic (ICD-10-PCS; 2022-12-13)
PROC: 07B60ZZ Excision of Left Axillary Lymphatic, Open Approach (ICD-10-PCS; 2022-12-14)
PROC: 0HTU0ZZ Resection of Left Breast, Open Approach (ICD-10-PCS; 2022-12-14)
PROC: 0KXG0Z5 Transfer Left Trunk Muscle, Latissimus Dorsi Myocutaneous Flap, Open Approach (ICD-10-PCS; 2022-12-14)
PROC: 4A133R1 Monitoring of Arterial Saturation, Peripheral, Percutaneous Approach (ICD-10-PCS; 2022-12-15)
PROC: 30233J1 Transfusion of Nonautologous Serum Albumin into Peripheral Vein, Percutaneous Approach (ICD-10-PCS; 2022-12-15)
PROC: 5A1D70Z Performance of Urinary Filtration, Intermittent, Less than 6 Hours Per Day (ICD-10-PCS; 2022-12-15)
PROC: 06HY33Z Insertion of Infusion Device into Lower Vein, Percutaneous Approach (ICD-10-PCS; 2022-12-16)
PROC: 4A00X4Z Measurement of Central Nervous Electrical Activity, External Approach (ICD-10-PCS; 2022-12-16)
PROC: 3E053XZ Introduction of Vasopressor into Peripheral Artery, Percutaneous Approach (ICD-10-PCS; 2022-12-16)
PROC: 5A12012 Performance of Cardiac Output, Single, Manual (ICD-10-PCS; 2022-12-16)
PROC: 5A1935Z Respiratory Ventilation, Less than 24 Consecutive Hours (ICD-10-PCS; 2022-12-16)
PROC: 0BH17EZ Insertion of Endotracheal Airway into Trachea, Via Natural or Artificial Opening (ICD-10-PCS; 2022-12-16)
PROC: 04HY32Z Insertion of Monitoring Device into Lower Artery, Percutaneous Approach (ICD-10-PCS; 2022-12-16)
PROC: 4A133B1 Monitoring of Arterial Pressure, Peripheral, Percutaneous Approach (ICD-10-PCS; 2022-12-16)
PROC: 4A133J1 Monitoring of Arterial Pulse, Peripheral, Percutaneous Approach (ICD-10-PCS; 2022-12-16)
DX: A41.52 Sepsis due to Pseudomonas (principal); G93.41 Metabolic encephalopathy; J96.01 Acute respiratory failure with hypoxia; N18.6 End stage renal disease; R65.21 Severe sepsis with septic shock; I12.0 Hypertensive chronic kidney disease with stage 5 chronic kidney disease or end stage renal disease; C79.51 Secondary malignant neoplasm of bone; K92.1 Melena; E87.1 Hypo-osmolality and hyponatremia; N25.81 Secondary hyperparathyroidism of renal origin; E87.20 Acidosis, unspecified; C50.912 Malignant neoplasm of unspecified site of left female breast; Z66 Do not resuscitate; Z51.5 Encounter for palliative care; E11.22 Type 2 diabetes mellitus with diabetic chronic kidney disease; Z99.2 Dependence on renal dialysis; D63.1 Anemia in chronic kidney disease; R74.01 Elevation of levels of liver transaminase levels; E78.00 Pure hypercholesterolemia, unspecified; Z88.8 Allergy status to other drugs, medicaments and biological substances; Z90.49 Acquired absence of other specified parts of digestive tract; Z90.710 Acquired absence of both cervix and uterus; Z98.41 Cataract extraction status, right eye; Z79.4 Long term (current) use of insulin; Z79.899 Other long term (current) drug therapy; Z20.822 Contact with and (suspected) exposure to COVID-19; N61.1 Abscess of the breast and nipple; E83.42 Hypomagnesemia; E83.119 Hemochromatosis, unspecified; N64.1 Fat necrosis of breast; I46.8 Cardiac arrest due to other underlying condition; Z86.73 Personal history of transient ischemic attack (TIA), and cerebral infarction without residual deficits; Z87.891 Personal history of nicotine dependence; R56.9 Unspecified convulsions
CPT/HCPCS: 31624; 36415; 36416; 36430; 70450; 71045; 71275; 74018; 74177; 74183; 76705; 78451; 80053; 80061; 80076; 81256; 82140; 82274; 82728; 82805; 83036; 83540; 83550; 83605; 83690; 83735; 84145; 84443; 85025; 85379; 86704; 86850; 86900; 86901; 87040; 87077; 87081; 87149; 87186; 87449; 87899; 88305; 88309; 90935; 93005; 93010; 93306; 93970; 94002; 94760; 95711; 95819; 95957; 96365; 96376; 97139; A9540; A9579; C9113; C9254; G0257; G0378; J0171; J0613; J0692; J0696; J1644; J1815; J1953; J2060; J2250; J2272; J2405; J2543; J2704; J3010; J3480; J3490; J7030; J7070; J7512; P9016; P9047; Q4081; Q9967; S0020; S0028